=== PATIENT | male | born 1975 | race Caucasian/White ===

== ENCOUNTER 2023-04-13 08:30 | Outpatient (AMB) | payer BC, SELFPAY ==
[2023-04-13 08:35] VITALS: BP 130/86; PULSE 84; O2SAT 98; BMI 28.6
--- NOTE | 2023-04-13 08:35 | MHC.PC.OV ---
Vital Signs 04/13/23 08:35 Height 5 ft 7 in Weight 182 lb 8 oz BMI 28.6 BP 130/86 Blood Pressure Location Lt brachial Position Sitting Pulse 84 Pulse Source Pulse Oximeter Pulse Oximetry (%) 98 Oxygen Delivery Method Room Air Intake Visit Reasons: discuss medication Cigarette Maker Required: No Accompanied by: Self / Same As Patient Allergies varenicline [From Chantix] Allergy (Intermediate, Verified 04/13/23 08:36) Depression Medication List - Last Reconciled 04/13/23 by Kenji Sutton MD citalopram (Celexa) 20 mg PO BID dextroamphetamine-amphetamine 20 mg (Adderall) 20 mg PO BID melatonin 20 mg (2 x 10 mg) PO DAILY Tobacco use date assessed: 04/13/23 Dental Screening Dental Screen Date: 04/13/23 Did you have a dental visit in the last 12 months?: Yes Did you have a dental problem in the last 6 months where you did not have access to dental care?: No Was dental information given to patient?: Patient has dentist HPI discuss medication HPI Details would like to restart Adderal; off for 4 years [facility] Surgical History History of hand surgery Family History Mother No problems noted. Father No problems noted. Social History (Updated 12/23/20 @ 14:27 by APURVA Willis) Housing: House Alcohol intake: never Patient Tobacco Use Status: Former Tobacco user e-Cigarette/Vaping Use: Never Used service: No Current occupational status: employed Cognitive needs: No Hearing needs: No Vision needs: No Questionnaire PHQ-9 Over the last 2 weeks, how often have you been bothered by any of the following problems? 1. Little interest or pleasure in doing things: not at all 2. Feeling down, depressed, or hopeless: not at all 3. Trouble falling or staying asleep, or sleeping too much: not at all 4. Feeling tired or having little energy: not at all 5. Poor appetite or overeating: not at all 6. Feeling bad about yourself - or that you are a failure or have let yourself or your family down: not at all 7. Trouble concentrating on things, such as reading the newspaper or watching television: not at all 8. Moving or speaking so slowly that other people could have noticed. Or the opposite - being so fidgety or restless that you have been moving around a lot more than usual: not at all 9. Thoughts that you would be better off or of hurting yourself in some way: not at all Total score: 0 Source: Developed by Drs. Ash Ro, Diane Haley, Dar Montgomery and colleagues, with an educational marquise from [employer]. Thrive Questionnaire Date Thrive assessed: 04/13/23 I am a: Patient What is your living situation today?: I have a steady place to live Within the past 12 months, did the food you bought not last and you didn't have the money to get more?: Never true Within the past 12 months, did you worry whether your food would run out before you got money to buy more?: Never true Do you have trouble paying for medicines?: No Do you have trouble getting transportation to medical appointments?: No Do you have trouble paying your heating and electricity bill?: No Do you have trouble taking care of your child, family member or friend?: No Do you have trouble with day-to-day activities such as bathing, preparing meals, shopping, managing finances, etc.?: No Are you currently unemployed and looking for a job?: No Are you interested in more education?: No Please select the resources that you would like help with: None Currently or been in a relationship where the following occur: no concerns reported AUDIT C Alcohol Use Questionnaire (AUDIT-C) 1. How often do you have a drink containing alcohol?: Never 2. How many drinks containing alcohol do you have on a typical day when you are drinking?: 1 or 2 (none) 3. How often do you have six or more drinks on one occasion?: Never Total Score: 0 CALIN-7 AMB Questionnaire CALIN-7 Date CALIN - 7 assessed: 04/13/23 Feeling nervous, anxious, or on edge: 0 = Not at all Not being able to stop or control worryin = Not at all Worrying too much about different things: 0 = Not at all Trouble relaxin = Not at all Being so restless that it is hard to sit still: 0 = Not at all Becoming easily annoyed or irritable: 0 = Not at all Feeling afraid as if something awful might happen: 0 = Not at all Total CALIN-7 score (0-4 normal; 5-9 mild; 10-14 moderate; 15-21 severe): 0 Source: Developed by Drs. Ash Ro, Diane Haley, Dar Montgomery and colleagues, with an educational marquise from [employer]. Review of Systems Const Denies chills, Denies headache(s) and Denies weight loss ENT Denies headache(s) Card Denies chest pain, Denies syncope, Denies irregular heart rhythm and Denies dyspnea Resp Denies chest congestion, Denies cough and Denies dyspnea GI Denies abdominal pain, Denies change in stool character, Denies nausea and Denies vomiting Musc Denies deformity and Denies joint swelling Neuro Denies syncope and Denies headache(s) Physical exam (Primary Care) Vital Signs: Last Vital Signs Pulse 84 04/13/23 08:35 BP 130/86 04/13/23 08:35 Pulse Ox 98 04/13/23 08:35 Oxygen Delivery Method Room Air 04/13/23 08:35 BMI result Body Mass Index 28.6 Tobacco/Smoking Status: Tobacco use Status Tobacco use date assessed 04/13/23 04/13/23 08:44 Patient Tobacco Use Status Former Tobacco user 04/13/23 08:44 e-Cigarette/Vaping Use Never Used 04/13/23 08:44 PHQ-9: PHQ-9 Score PHQ-9: Total score 0 04/13/23 08:44 Thrive Assessment: Date of Thrive Assessment Date Thrive assessed 04/13/23 04/13/23 08:44 Currently or been in a relationship where the following occur: no concerns reported Const General: cooperative, healthy appearing and no acute distress HENMT Head: Yes normal to inspection Eyes General: appearance normal, both eyes and all related structures Neck Neck: Yes normal visual inspection Chest Chest palpation & inspection: normal inspection of the chest Assessment and Plan Assessment & Plan (1) ADHD: Code(s): F90.9 - Attention-deficit hyperactivity disorder, unspecified type Plan: labs and referral Orders: Orders Lipid Panel Today E78.5 - Hyperlipidemia, unspecified Thyroid Stimulating Hormone Today E03.9 - Hypothyroidism, unspecified Complete Blood Count Auto Diff Today D64.9 - Anemia, unspecified Comprehensive [place]. Panel Fast Today N28.9 - Disorder of kidney and ureter, unspecified Referrals Psychiatry Referral F90.9 - Attention-deficit hyperactivity disorder, unspecified type Medications: New melatonin 20 mg (2 x 10 mg) PO DAILY 60 caps 3RF Coding Level of Care Code New Pt Level 3 (57478) Diagnoses ADHD F90.9
== END 2023-04-13 09:11 | disposition home or self-care (01) ==
PROVIDERS: PCP Internal Medicine; Visit Provider Internal Medicine
DX: F90.9 Attention-deficit hyperactivity disorder, unspecified type (principal)
CPT/HCPCS: 99213

== ENCOUNTER 2023-05-02 06:32 | Outpatient (REF) | payer BC, SELFPAY ==
[2023-05-02 06:44] LABS: MANUAL DIFF FLAG NO
[2023-05-02 07:29] LABS: Basophils Absolute Auto 0.1 X10*3/uL (0.0-0.2); Basophils Percent Auto 0.5 % (0-2); Eosinophils Absolute Auto 0.1 X10*3/uL (0.0-0.4); Eosinophils Percent Auto 1.2 % (0-4); Hematocrit 46.3 % (42.0-52.0); Imm Gran Abs Auto 0.03 X10*3/uL (0.00-0.03); Imm Gran Pct Auto 0.3 % (0.0-0.4); Lymphocytes Absolute Auto 3.5 X10*3/uL (1.2-4.9); Lymphocytes Percent Auto 35.5 % (20-40); Mean Corpuscular HGB Conc 34.6 g/dl (31.0-36.0); Mean Corpuscular Hemoglobin 30.1 pg (27.0-33.0); Mean Corpuscular Volume 87.2 fL (80.0-98.0); Mean Platelet Volume 9.8 fL (9.4-12.4); Monocytes Absolute Auto 0.9 X10*3/uL (0.1-1.2); Monocytes Percent Auto 8.8 % (2-11); Neutrophils Absolute Auto 5.4 x10*3/uL (2.0-8.3); Neutrophils Percent Auto 53.7 % (45-73); Platelet Count 280 X10*3/uL (160-400); Red Blood Count 5.31 X10*6/uL (4.60-5.80); Red Cell Distribution Width 12.9 % (11.0-16.0)
[2023-05-02 08:02] LABS: Alanine Aminotransferase 38 U/L (0-40); Albumin Level 4.4 g/dL (3.5-5.0); Alkaline Phosphatase 77 U/L (39-117); Anion Gap 13 (12-20); Aspartate Amino Transferase 29 U/L (5-37); Bilirubin Total 0.4 mg/dL (0.0-1.0); Blood Urea Nitrogen 14 mg/dL (9-16); Calcium 9.6 mg/dL (8.4-10.2); Carbon Dioxide 23 mmol/L (22-29); Chloride 104 mmol/L (96-108); Cholesterol 203 mg/dL (<200); Estimated Glomerular Filt Rate > 60; Glucose Fasting 87 mg/dL (60-99); HDL Cholesterol 44 mg/dL (>40); LDL Cholesterol Calculated 134 mg/dL (<100); Sodium 136 mmol/L (135-145); Total Protein 7.6 g/dL (6.5-8.0); Triglycerides 128 mg/dL (<150)
[2023-05-02 08:20] LABS: Thyroid Stimulating Hormone 2.42 uIU/mL (0.32-4.0)
== END 2023-05-02 06:33 | disposition home or self-care (01) ==
LOC: HO.LAB 06:32
PROVIDERS: PCP Internal Medicine; Visit Provider Internal Medicine
DX: N28.9 Disorder of kidney and ureter, unspecified (principal); D64.9 Anemia, unspecified; E03.9 Hypothyroidism, unspecified; E78.5 Hyperlipidemia, unspecified
CPT/HCPCS: 36415; 80053; 80061; 84443; 85025

== ENCOUNTER 2023-07-03 09:38 | Outpatient (AMB) | payer BC, SELFPAY ==
[2023-07-03 09:47] VITALS: BP 150/100; PULSE 55; O2SAT 97; BMI 29.0
--- NOTE | 2023-07-03 09:47 | A.OFFPC_ITS ---
Vital Signs 07/03/23 09:47 Height 5 ft 7 in Weight 185 lb BMI 29.0 BP 150/100 H Blood Pressure Location Lt brachial Position Sitting Pulse 55 Pulse Source Pulse Oximeter Pulse Oximetry (%) 97 Oxygen Delivery Method Room Air Intake Visit Reasons: Discuss meds/ Req psych referral Trolley Wire Installer Required: No Steam Shovel Runner: Not Required per policy Accompanied by: Self / Same As Patient Allergies varenicline [From Chantix] Allergy (Intermediate, Verified 04/13/23 08:36) Depression Tobacco use date assessed: 04/13/23 Dental Screening Dental Screen Date: 07/03/23 Did you have a dental visit in the last 12 months?: Yes Did you have a dental problem in the last 6 months where you did not have access to dental care?: No Was dental information given to patient?: Patient has dentist HPI Discuss meds/ Req psych referral HPI Details has depression and will be seeing psych nexr month PFS Surgical History History of hand surgery Family History Mother No problems noted. Father No problems noted. Social History Housing: House Alcohol intake: never Patient Tobacco Use Status: Former Tobacco user e-Cigarette/Vaping Use: Never Used service: No Current occupational status: employed Cognitive needs: No Hearing needs: No Vision needs: No Questionnaire PHQ-9 Over the last 2 weeks, how often have you been bothered by any of the following problems? 1. Little interest or pleasure in doing things: not at all 2. Feeling down, depressed, or hopeless: not at all 3. Trouble falling or staying asleep, or sleeping too much: not at all 4. Feeling tired or having little energy: not at all 5. Poor appetite or overeating: not at all 6. Feeling bad about yourself - or that you are a failure or have let yourself or your family down: not at all 7. Trouble concentrating on things, such as reading the newspaper or watching television: not at all 8. Moving or speaking so slowly that other people could have noticed. Or the opposite - being so fidgety or restless that you have been moving around a lot more than usual: not at all 9. Thoughts that you would be better off or of hurting yourself in some way: not at all Total score: 0 Depression Screening Interpretation: Negative Depression Screening Done: Yes 53899 - PHQ-9 Billing: Yes Source: Developed by Drs. Ash Ro, Diane Haley, Dar Montgomery and colleagues, with an educational marquise from [employer]. Thrive Questionnaire Date Thrive assessed: 04/13/23 AUDIT C Alcohol Use Questionnaire (AUDIT-C) 1. How often do you have a drink containing alcohol?: Never 2. How many drinks containing alcohol do you have on a typical day when you are drinking?: 1 or 2 (none) 3. How often do you have six or more drinks on one occasion?: Never Total Score: 0 CALIN-7 AMB Questionnaire CALIN-7 Date CALIN - 7 assessed: 04/13/23 Source: Developed by Drs. Ash Ro, Diane Haley, Dar Montgomery and colleagues, with an educational marquise from [employer]. Review of Systems Const Denies chills, Denies headache(s) and Denies weight loss ENT Denies headache(s) Card Denies chest pain, Denies syncope, Denies irregular heart rhythm and Denies dyspnea Resp Denies chest congestion, Denies cough and Denies dyspnea GI Denies abdominal pain, Denies change in stool character, Denies nausea and Denies vomiting Musc Denies deformity and Denies joint swelling Neuro Denies syncope and Denies headache(s) Physical exam (Primary Care) Vital Signs: Last Vital Signs Pulse 55 07/03/23 09:47 BP 150/100 H 07/03/23 09:47 Pulse Ox 97 07/03/23 09:47 Oxygen Delivery Method Room Air 07/03/23 09:47 BMI result Body Mass Index 29.0 Tobacco/Smoking Status: Tobacco use Status Tobacco use date assessed 04/13/23 07/03/23 09:52 Patient Tobacco Use Status Former Tobacco user 07/03/23 09:52 e-Cigarette/Vaping Use Never Used 07/03/23 09:52 PHQ-9: PHQ-9 Score PHQ-9: Total score 0 07/03/23 09:55 Depression Screening Interpretation: Negative Thrive Assessment: Date of Thrive Assessment Date Thrive assessed 04/13/23 07/03/23 09:52 Const General: cooperative, comfortable, no acute distress and alert Neck Neck: Yes no lymphadenopathy Thyroid: Thyroid normal Resp Effort & Inspection: normal respiratory effort Auscultation: clear to auscultation bilaterally Percussion: percussion normal Cardio Jugular venous distension: no JVD Palpation: normal PMI Rate: regular rate Rhythm: regular rhythm Heart sounds: S1 normal heart sound present and S2 normal heart sound present GI Inspection: Yes normal to inspection Palpation (GI): No hepatosplenomegaly present Skin General skin exam: no rashes or lesions noted Extrem General: Yes no clubbing, cyanosis or edema Office Procedures Flu Questionnaire Does the patient have a severe egg allergy?: No Does the patient have severe life threatening allergies?: No Does the patient have a fever or illness today?: No Has the patient ever had Guillain-Hahira Syndrome?: No Has the patient ever had any past reaction to a flu shot?: No Immunizations flu vacc [id number] 6mos up(PF) 60 mcg(15 mcgx4)/0.5 mL IM syringe Performing Provider: Kenji Sutton MD Performing Location: [facility] Administered by: APURVA Otoole on 07/03/23 09:55 Dose Route Admin Location Dispensed Lot Number Expiration Date NDC Resp Therapist 0.5 mL IM Left Deltoid 0.5 mL [id number] 02/24/24 34167-272-90 [facility] Given Date VIS Provided VIS Publication Date 07/03/23 Single Vaccine 21 Eligibility Eligibility Date Funding Source Not [facility] Eligible 07/03/23 Private Assessment and Plan Assessment & Plan (1) Depression: Code(s): F32.A - Depression, unspecified Plan: as per psych Orders: Orders Influenza [id number] Immunization Today Z23 - Encounter for immunization Medications: New citalopram (Celexa) 20 mg PO BID 60 tabs 3RF Coding Level of Care Code Est Pt Level 3 (74581) Diagnoses Depression F32.A
== END 2023-07-03 11:32 | disposition home or self-care (01) ==
PROVIDERS: PCP Internal Medicine; Visit Provider Internal Medicine
DX: Z23 Encounter for immunization (principal); F32.A Depression, unspecified
CPT/HCPCS: 90471; 90686; 99213

== ENCOUNTER 2023-12-24 13:40 | Outpatient (AMB) | payer BC, SELFPAY ==
[2023-12-24 13:47] VITALS: BP 118/76; PULSE 80; O2SAT 98; BMI 28.5
--- NOTE | 2023-12-24 13:47 | A.OFFPC_ITS ---
Vital Signs 12/24/23 13:47 Height 5 ft 7 in Weight 182 lb BMI 28.5 BP 118/76 Blood Pressure Location Lt brachial Position Standing Pulse 80 Pulse Source Pulse Oximeter Pulse Oximetry (%) 98 Oxygen Delivery Method Room Air Intake Visit Reasons: Annual Exam Dimension Specification Inspector Required: No Accompanied by: Self / Same As Patient Allergies varenicline [From Chantix] Allergy (Intermediate, Verified 12/24/23 13:47) Depression Medication List - Last Reconciled 12/25/23 by Kenji Sutton MD citalopram (Celexa) 20 mg PO BID dextroamphetamine-amphetamine 20 mg (Adderall) 20 mg PO BID melatonin 20 mg (2 x 10 mg) PO DAILY Tobacco use date assessed: 12/24/23 Dental Screening Dental Screen Date: 12/24/23 Did you have a dental visit in the last 12 months?: Yes Did you have a dental problem in the last 6 months where you did not have access to dental care?: No Was dental information given to patient?: Patient has dentist HPI Annual Exam HPI Details adhd; sees psych PFSH Surgical History History of hand surgery Family History (Updated 12/24/23 @ 13:48 by Yaritza Ramirez CMA) Mother No problems noted. Father No problems noted. Social History Housing: House Alcohol intake: never Patient Tobacco Use Status: Former Tobacco user Tobacco use type: Cigarette e-Cigarette/Vaping Use: Never Used Second Hand Smoke Exposure: No service: No Current occupational status: employed Cognitive needs: No Hearing needs: No Vision needs: No Questionnaire PHQ-9 Over the last 2 weeks, how often have you been bothered by any of the following problems? 1. Little interest or pleasure in doing things: not at all 2. Feeling down, depressed, or hopeless: several days 3. Trouble falling or staying asleep, or sleeping too much: not at all 4. Feeling tired or having little energy: not at all 5. Poor appetite or overeating: not at all 6. Feeling bad about yourself - or that you are a failure or have let yourself or your family down: not at all 7. Trouble concentrating on things, such as reading the newspaper or watching television: not at all 8. Moving or speaking so slowly that other people could have noticed. Or the opposite - being so fidgety or restless that you have been moving around a lot more than usual: not at all 9. Thoughts that you would be better off or of hurting yourself in some way: not at all Total score: 1 Depression Screening Interpretation: Negative Depression Screening Done: Yes 23782 - PHQ-9 Billing: Yes Source: Developed by Drs. Ash Ro, Diane Haley, Dar Montgomery and colleagues, with an educational marquise from [employer]. Thrive Questionnaire Date Thrive assessed: 12/24/23 I am a: Patient What is your living situation today?: I have a steady place to live Within the past 12 months, did the food you bought not last and you didn't have the money to get more?: Never true Within the past 12 months, did you worry whether your food would run out before you got money to buy more?: Never true Do you have trouble paying for medicines?: No Do you have trouble getting transportation to medical appointments?: No Do you have trouble paying your heating and electricity bill?: No Do you have trouble taking care of your child, family member or friend?: No Do you have trouble with day-to-day activities such as bathing, preparing meals, shopping, managing finances, etc.?: No Are you currently unemployed and looking for a job?: No Are you interested in more education?: No Currently or been in a relationship where the following occur: no concerns reported THRIVE Score: 0 AUDIT C Alcohol Use Questionnaire (AUDIT-C) 1. How often do you have a drink containing alcohol?: Never 2. How many drinks containing alcohol do you have on a typical day when you are drinking?: 1 or 2 (none) 3. How often do you have six or more drinks on one occasion?: Never Total Score: 0 CALIN-7 AMB Questionnaire CALIN-7 Date CALIN - 7 assessed: 12/24/23 Feeling nervous, anxious, or on edge: 1 = Several days Not being able to stop or control worryin = Not at all Worrying too much about different things: 0 = Not at all Trouble relaxin = Not at all Being so restless that it is hard to sit still: 0 = Not at all Becoming easily annoyed or irritable: 0 = Not at all Feeling afraid as if something awful might happen: 0 = Not at all Total CALIN-7 score (0-4 normal; 5-9 mild; 10-14 moderate; 15-21 severe): 1 Source: Developed by Drs. Ash Ro, Diane Haley, Dar Montgomery and colleagues, with an educational marquise from [employer]. CALIN-7 Assessment Billing CALIN-7 Assessment Tool: CALIN-7 Assessment 53392 Review of Systems Const Denies chills, Denies fatigue, Denies headache(s) and Denies weight loss Eyes Denies change in vision, Denies diplopia and Denies eye pain ENT Denies vertigo, Denies dizziness, Denies headache(s) and Denies nasal discharge Card Denies chest pain, Denies rapid heart rate and Denies dyspnea on exertion Resp Denies chest congestion, Denies cough, Denies pain with cough and Denies dyspnea on exertion GI Denies abdominal pain, Denies hematochezia and Denies change in bowel habits Musc Denies myalgias, Denies arthralgias and Denies joint swelling Skin/Breast Denies lesions and Denies unusual bruising Neuro Denies vertigo, Denies dizziness, Denies headache(s) and Denies focal weakness Endo Denies fatigue Physical exam (Primary Care) Vital Signs: Last Vital Signs Pulse 80 12/24/23 13:47 BP 118/76 12/24/23 13:47 Pulse Ox 98 12/24/23 13:47 Oxygen Delivery Method Room Air 12/24/23 13:47 BMI result Body Mass Index 28.5 Tobacco/Smoking Status: Tobacco use Status Tobacco use date assessed 12/24/23 12/24/23 13:53 Patient Tobacco Use Status Former Tobacco user 12/24/23 13:53 Tobacco use type Cigarette 12/24/23 13:53 e-Cigarette/Vaping Use Never Used 12/24/23 13:53 PHQ-9: PHQ-9 Score PHQ-9: Total score 1 12/24/23 13:53 Depression Screening Interpretation: Negative Thrive Assessment: Date of Thrive Assessment Date Thrive assessed 12/24/23 12/24/23 13:53 Currently or been in a relationship where the following occur: no concerns reported Const General: cooperative, healthy appearing and no acute distress Orientation/consciousness: oriented to person, oriented to place and oriented to time HENMT Head: Yes normal to inspection, Yes normocephalic and Yes atraumatic Mouth: Normal oral and palatal mucosa present and tongue normal Throat: Yes posterior oropharynx normal and Yes uvula midline Eyes General: appearance normal, both eyes and all related structures Neck Neck: Yes normal visual inspection, Yes full ROM and Yes no lymphadenopathy Thyroid: Thyroid normal Carotids: normal carotid upstroke Chest Chest palpation & inspection: normal inspection of the chest Resp Effort & Inspection: normal respiratory effort and able to speak in complete sentences Auscultation: clear to auscultation bilaterally Cardio Jugular venous distension: no JVD Palpation: normal PMI Rate: regular rate Rhythm: regular rhythm Heart sounds: S1 normal heart sound present and S2 normal heart sound present GI Inspection: Yes normal to inspection Palpation (GI): Soft to palpation and No hepatosplenomegaly present Auscultation: normal bowel sounds General: Yes no CVA tenderness Back/Spine/Pelvis Back: no CVA tenderness Skin General skin exam: no rashes or lesions noted Neuro General: oriented to person, oriented to place and oriented to time Extrem General: Yes normal to inspection and Yes full ROM Assessment and Plan Assessment & Plan (1) Physical exam: Code(s): Z00.00 - Encounter for general adult medical examination without abnormal findings Plan: stable; do labs (2) ADHD: Code(s): F90.9 - Attention-deficit hyperactivity disorder, unspecified type Plan: per psych Orders: Orders Lipid Panel 12/24/23 Z13.220 - Encounter for screening for lipoid disorders Complete Blood Count Auto Diff 12/24/23 Z13.0 - Encounter for screening for diseases of the blood and blood-forming organs and certain disorders involving the immune mechanism Comprehensive [place]. Panel Fast 12/24/23 Z13.9 - Encounter for screening, unspecified Referrals Gastroenterology Referral Z12.11 - Encounter for screening for malignant neoplasm of colon Coding Level of Care Code Est Pt Prev Care 40-64y(00913) Diagnoses Physical exam Z00.00 ADHD F90.9 Additional Codes CALIN-7 Assessment Billing - CALIN-7 Assessment Tool: CALIN-7 Assessment 62076 ([id number])
== END 2023-12-24 15:02 | disposition home or self-care (01) ==
PROVIDERS: PCP Internal Medicine; Visit Provider Internal Medicine
DX: Z00.00 Encounter for general adult medical examination without abnormal findings (principal); F90.9 Attention-deficit hyperactivity disorder, unspecified type
CPT/HCPCS: 99396

== ENCOUNTER 2024-11-16 14:44 | Emergency (ER) | payer BC, SELFPAY ==
--- NOTE | ~2024-11-16 | XR_ITS ---
CLINICAL HISTORY: laceration L ring finger ?metal fb Radiographs of the left 4th digit, 3 views Comparison: None Findings: No fracture or dislocation. No degenerative change. Bone mineralization is normal. Soft tissue swelling laceration. No radiopaque foreign body. Impression: No fracture. No radiopaque foreign body. This document has been electronically signed by: Marleen Thompson MD on 11/16/2024 15:46:35
[2024-11-16 14:51] VITALS: BP 143/101; PULSE 105; RESP 18; TEMP 37; O2SAT 98; BMI 29.0
--- NOTE | 2024-11-16 14:54 | ED_ITS ---
HPI - Wound/Laceration General Chief Complaint: Wound/Laceration Stated Complaint: finger laceration Time Seen by Provider: 11/16/24 18:04 Source: patient Mode of arrival: ambulatory Limitations: no limitations History of Present Illness ED Provider: SIHLPA MORALES PA-C HPI narrative: 48-year-old male presents to the ED today for evaluation of laceration to left 4th digit sustained [employer] in ED today. He states that while sweeping up in his garage, his metal broom cracked causing him to cut his finger. The area immediately began to bleed. He presents with the area bandaged. He is not on anticoagulation. He is unsure of his last tetanus shot. Denies any difficulty moving the finger. Denies any other complaints. Related Data Home Medications ?Medication ?Instructions ?Recorded ?Confirmed dextroamphetamine-amphetamine 20 20 mg PO BID 12/23/20 12/25/23 mg tablet (Adderall) Previous Rx's ?Medication ?Instructions ?Recorded melatonin 10 mg capsule 20 mg (2 x 10 mg) PO DAILY #60 caps 04/13/23 citalopram 20 mg tablet (Celexa) 20 mg PO BID #60 tabs 07/03/23 Allergies Allergy/AdvReac Type Severity Reaction Status Date / Time varenicline [From Chantix] Allergy Intermediate Depression Verified 11/16/24 14:51 Review of Systems Review of Systems: Yes all other systems are reviewed and are negative PMFSH Past Medical History Attestation statement: The following information was validated with the patient. Source: old records reviewed and nursing notes reviewed Surgical History History of hand surgery Family History Family History Mother No problems noted. Father No problems noted. Social History Social History Housing: House Alcohol intake: never Patient Tobacco Use Status: Former Tobacco user Tobacco use type: Cigarette e-Cigarette/Vaping Use: Never Used Second Hand Smoke Exposure: No service: No Current occupational status: employed Cognitive needs: No Hearing needs: No Vision needs: No Physical Exam Vital Signs: Vital Signs: Last Vital Signs Temp 98.6 F 11/16/24 14:51 Pulse 105 H 11/16/24 14:51 Resp 18 11/16/24 14:51 BP 143/101 H 11/16/24 14:51 Pulse Ox 98 11/16/24 14:51 O2 Del Method Room Air 11/16/24 14:51 BMI result Body Mass Index 29.0 Hypertensive, tachycardic General: Well appearing, in no acute distress. Skin: +see below Head: Normocephalic, atraumatic. EENT: Hearing is intact b/l. Conjunctiva clear. PERRLA. EOM intact. Moist mucous membranes.? Cardiac: Chest wall symmetric. RRR. Lungs: Normal respiratory effort without accessory muscle use Ext: +2 superficial semi circular laceration to the palmar aspect of the left 4th digit. FROM intact to left 4th mcp, pip, dip. No noted FB. no visible bone. cap refill <2 seconds. 2+ radial/ ulnar pulse. Neuro: AOx3. Normal speech. Ambulating with steady gait. Course Course Course Narrative: This is a Rapid Medical Examination (RME) performed by Vicki Morales PA-C in triage. Full HPI, ROS, assessment and treatment plan per primary provider in the Main ED. Hx: 48 yo male here for eval of laceration to left ring finger sustained [employer] while sweeping in his garage. cut the finger on the metal broom. unsure of tetanus. no thinners. PE/vitals: semi cher-ae heights laceration noted to palmar aspect of L 4th digit. ac tively bleeding - wrapped in triage. Plan: xrs, tdap, lac repair Reevaluation(s) Reevaluation #1: 2 lacerations repaired with a total of 8 sutures after performing digital block. Patient tolerated well. Bleeding controlled. Wrapped in a nonstick dressing. X-rays do not demonstrate fracture or retained foreign body, specifically metal. His tetanus was updated today. Antibiotics not warranted at this time. He does have full range of motion to the digit however I will provide him with a referral to hand surgery if he desires. Patient has remained stable throughout ED visit today. Discussed worrisome signs and symptoms and when to return to the ED. All questions answered at this time. Patient is agreeable with disposition and stable for discharge. Medications Administered Discontinued Medications Generic Name Dose Route Start Last Admin Trade Name Freq PRN Reason Stop Dose Admin Diphtheria/Tetanus/Acell Pertussis 0.5 ml 11/16/24 14:54 11/16/24 18:09 Diphth,Pertus(Acell),Tet Adult 0.5 Ml Syringe IM 11/16/24 14:55 0.5 ml .ONCE ONE Administration Lidocaine HCl 10 ml 11/16/24 18:05 11/16/24 18:09 Lidocaine Hcl 1 % Mpf 5 Ml Vial INFILTRATI 11/16/24 18:06 10 ml ONCE ONE Administration Medical Decision Making Medical Decision Making MDM Narrative: 48-year-old male presents to the ED today for evaluation of laceration to left 4th digit sustained [employer] in ED today. he is nontoxic appearing and in NAD. On exam, there are 2 superficial semi circular laceration to the palmar aspect of the left 4th digit. FROM intact to left 4th mcp, pip, dip. No noted FB. no visible bone. cap refill <2 seconds. 2+ radial/ ulnar pulse. Differential diagnosis includes abrasion, laceration, retained FB, fracture Plan for xrays, tdap booster, laceration repair. Differential Diagnosis Differential Diagnoses: The differential diagnosis associated with the presentat ion includes as above. Admission/Observation Not indicated Independent Interpretation I performed an independent interpretation of an: Plain X-Ray Interpretation: XR left 4th digit without fracture or retained FB Radiology Impression Discussion of test interpretation with radiology: I have reviewed the radiologist's reading. Radiologist Impression: Procedure(s): XR finger LT min 2V Accession Number(s): [id number] cc: Kenji Sutton MD; Shilpa Morales~ CLINICAL HISTORY: laceration L ring finger ?metal fb Radiographs of the left 4th digit, 3 views Comparison: None Findings: No fracture or dislocation. No degenerative change. Bone mineralization is normal. Soft tissue swelling laceration. No radiopaque foreign body. Impression: No fracture. No radiopaque foreign body. This document has been electronically signed by: Marleen Thompson MD on 11/16/2024 15:46:35 External Record Review External record reviewed: Inpatient record Prescription Management I considered prescription management with: Pain Medication Social Determinants Patient?s care significantly limited by Social Determinants of Health including: Other Social Determinant of Health Procedures Laceration Laceration 1: Site: hand Side (If applicable): left Size (cm): 1 Description: other (semi cher-ae heights) Depth: simple, single layer Local Anesthetic: lidocaine 1% Amount of anesthesia used (mL): 5 Pre-repair: wound explored, irrigated extensively and deep structures intact Skin layer closed with: nylon Size (cm): 3-0 Number of sutures: 3 Technique: simple, interrupted Laceration 2: Site: hand Side (If applicable): left Size (cm): 1.5 Description: other (Semicircular) Depth: simple, single layer Local Anesthetic: lidocaine 1% Amount of anesthesia used (mL): 5 Pre-repair: wound explored, irrigated extensively and deep structures intact Skin layer closed with: nylon Size (cm): 3-0 Number of sutures: 5 Technique: simple, interrupted Nerve Block Nerve Block 1: Time out performed: Yes Local Anesthetic: lidocaine 1% Amount of anesthesia used (mL): 10 Side: left Nerve Blocks: digital Procedure Successful: Yes Patient Tolerated Procedure: well Complications: none Critical Care Time Critical Care Time Critical Care Time: No Discharge Plan Discharge Clinical Impression: Laceration of finger of left hand Patient Disposition: Home, Self-Care Instructions: Laceration (ED) Additional Instructions: You have been evaluated in the Emergency Department today for a laceration to your left 4th digit. Your xrays did not show fracture or retained foreign body. Your laceration was repaired in the ED with 8 sutures. Your tetanus vaccination was also updated and will be valid for 5-10 years. Please keep the area surrounding the laceration clean and dry. Do not get the area wet for 24 hours. After 24 hours, you may clean the area with a nonscented soap and pat to dry. Please keep the area out of the sunlight for the next 6 months to help prevent scarring.? If you develop redness or swelling at the site of your laceration or note any discharge/ fluid coming from the laceration, please come back to the ER for a wound check. I recommend you take 600mg ibuprofen every 6 hours or tylenol 650mg every 6 hours as needed for pain. If needed, you can alternate these medications so that you take one medication every 3 hours. For example, at noon take ibuprofen, then at 3pm take tylenol, then at 6pm take ibuprofen. Please follow up with your primary care physician in 7-10 days for suture removal. You may also return to the ER or another urgent care facility for this service. I have also provided you with a referral to a hand surgeon. You may call them for follow-up. They will not call you. Return to the Emergency Department if you experience discharge from your laceration, redness around your laceration, warmth around your laceration, fever, vomiting, numbness, tingling, or any other concerning symptoms. In the case of an emergency call 911. Prescriptions: No Action dextroamphetamine-amphetamine [Adderall] 20 mg tablet 20 mg PO BID Rx Instructions: administer doses at least 4-6 hours apart melatonin 10 mg capsule 20 mg PO DAILY Qty: 60 3RF citalopram [Celexa] 20 mg tablet 20 mg PO BID Qty: 60 3RF Referrals: Kenji Sutton MD [Primary Care Provider] - Stand Alone Forms: Work/School Release Discharge Date/Time: 11/16/24 18:58 Print Language: Latvian
[2024-11-16] MEDS: Lidocaine HCl 1 % MPF 5 ML VIAL 10 ML INFILTRATI (18:09)
[2024-11-16] MEDS: Diphth,Pertus(ACell),Tet Adult 0.5 ML SYRINGE IM (18:09)
--- NOTE | 2024-11-16 18:56 | PC.NURSE ---
pt discharged at change of shift by provider.
[2024-11-16 18:57] VITALS: BP 143/101; PULSE 105; RESP 18; TEMP 37; O2SAT 98
== END 2024-11-16 18:58 | disposition home or self-care (01) ==
PROVIDERS: Emergency Provider Emergency Medicine Emergency Medical Services; PCP Internal Medicine
DX: S61.215A Laceration without foreign body of left ring finger without damage to nail, initial encounter (principal); W26.8XXA Contact with other sharp object(s), not elsewhere classified, initial encounter; Y93.89 Activity, other specified; Y92.094 Garage of other non-institutional residence as the place of occurrence of the external cause; Y99.9 Unspecified external cause status; Z79.899 Other long term (current) drug therapy
CPT/HCPCS: 12001; 73140; 90471; 90715; 99282; 99284; J2003

== ENCOUNTER → 2024-11-16 14:53 | Outpatient (BNV) | payer BC, SELFPAY | PROVIDERS: PCP Internal Medicine; Visit Provider Radiology Diagnostic Radiology | DX: S61.215A Laceration without foreign body of left ring finger without damage to nail, initial encounter (principal) | CPT/HCPCS: 73140 ==

== ENCOUNTER 2025-01-21 17:39 | Emergency (ER) | payer BC, SELFPAY ==
[2025-01-21 17:57] VITALS: BP 138/101; PULSE 96; RESP 16; TEMP 36.2; O2SAT 96; BMI 28.1
--- NOTE | 2025-01-21 18:31 | ED_ITS ---
HPI - General Adult General Chief complaint: Animal Bite Stated complaint: tick bite Time Seen by Provider: 01/21/25 20:44 Source: patient Mode of arrival: ambulatory Limitations: no limitations History of Present Illness ED Provider: HPI narrative: Patient apparently had a tick bite 4 days ago on his left thigh which he removed less than 24 hours take was not engorged since then patient has been feeling weak tired no fever no chills no history of Lyme disease no upper respiratory symptoms Related Data Home Medications ?Medication ?Instructions ?Recorded ?Confirmed dextroamphetamine-amphetamine 20 20 mg PO BID 12/23/20 12/25/23 mg tablet (Adderall) Previous Rx's ?Medication ?Instructions ?Recorded melatonin 10 mg capsule 20 mg (2 x 10 mg) PO DAILY #60 caps 04/13/23 citalopram 20 mg tablet (Celexa) 20 mg PO BID #60 tabs 07/03/23 Allergies Allergy/AdvReac Type Severity Reaction Status Date / Time varenicline [From Chantix] Allergy Intermediate Depression Verified 01/21/25 17:59 Review of Systems 2 Review of Systems: Yes all other systems are reviewed and are negative [facility] Past Medical History Surgical History History of hand surgery Family History Family History Mother No problems noted. Father No problems noted. Social History Social History Housing: House Alcohol intake: never Patient Tobacco Use Status: Former Tobacco user Tobacco use type: Cigarette Smoked in Last 30 Days: No e-Cigarette/Vaping Use: Never Used Second Hand Smoke Exposure: No Use of substances other than those prescribed or required for medical reasons: No Advance Directives: No Advance Directives Information Provided: Yes Do you have a plan to hurt others: No Plan service: No Current occupational status: employed Cognitive needs: No Hearing needs: No Vision needs: No Physical Exam ED Vital Signs: Vital Signs - 24 hr 01/21/25 17:57 01/21/25 20:35 01/21/25 21:18 Temperature 97.1 F 97.6 F 97.6 F Pulse Rate 96 63 63 Respiratory Rate 16 16 16 Blood Pressure 138/101 H 142/85 H 142/85 H Pulse Oximetry 96 99 99 Oxygen Delivery Method Room Air Room Air BMI result Body Mass Index 28.1 Appearance: Alert. Oriented X3. No acute distress. Eyes: no pallor or icterus ENT: Pharynx normal Oral Mucosa moist tympanic membrane intact no erythema, Neck: Normal inspection. Neck supple. CVS: Normal heart rate and rhythm. Pulses normal. Respiratory: No respiratory distress. Equal air entry bilateral, no wheezing/rales/rhonchi Abd: soft, not tender Skin: Skin warm and dry. Normal skin color. Normal skin turgor. Extremities: No lower extremity edema, no calf tenderness bite jake on the left thigh no bull's eye sign Neuro: Oriented X 3. Course Course Course Narrative: This is a Rapid Medical Examination (RME) performed by Vicki Morales PA-C in triage. Full HPI, ROS, assessment and treatment plan per primary provider in the Main ED. Hx: 49 yo M here for eval of fatigue s/p removing tick from L thigh on Sunday morning. noticed redness around bite immediately after. no fevers. Plan: labs, tick/lyme testing - further eval in back Medications Administered Discontinued Medications Generic Name Dose Route Start Last Admin Trade Name Freq PRN Reason Stop Dose Admin Doxycycline Monohydrate 200 mg 01/21/25 20:49 01/21/25 21:16 Doxycycline Monohydrate 100 Mg Capsule PO 01/21/25 20:50 200 mg ONCE ONE Administration Medical Decision Making Medical Decision Making [facility] Narrative: Patient has AA take bite had subjective symptoms unlikely from Lyme disease will give prophylaxis doxycycline labs were drawn and sent for further testing Lab Data [facility] Lab Attestation statement: I reviewed the patient's lab results. 01/21/25 18:32 01/21/25 18:32 Labs: Lab Results 01/21/25 Range/Units 18:32 WBC 6.6 (4.8-10.8) X10*3/uL RBC 5.45 (4.60-5.80) X10*6/uL Hgb 16.7 (14.0-18.0) g/dl Hct 47.6 (42.0-52.0) % MCV 87.3 (80.0-98.0) fL MCH 30.6 (27.0-33.0) pg MCHC 35.1 (31.0-36.0) g/dl RDW 13.2 (11.0-16.0) % Plt Count 269 (160-400) X10*3/uL MPV 9.4 (9.4-12.4) fL Immature Gran % (Auto) 0.3 (0.0-0.4) % Neut % (Auto) 54.6 (45-73) % Lymph % (Auto) 30.9 (20-40) % Chaves % (Auto) 11.3 H (2-11) % Eos % (Auto) 1.8 (0-4) % Baso % (Auto) 1.1 (0-2) % Lymph # (Auto) 2.0 (1.2-4.9) X10*3/uL Chaves # (Auto) 0.7 (0.1-1.2) X10*3/uL Eos # (Auto) 0.1 (0.0-0.4) X10*3/uL Baso # (Auto) 0.1 (0.0-0.2) X10*3/uL Abs Immat Gran (auto) 0.02 (0.00-0.03) X10*3/uL Absolute Neuts (auto) 3.6 (2.0-8.3) x10*3/uL Absolute Nucleated RBC 0.000 (0.0-0.012) X10*3/uL Nucleated RBC % (auto) 0.0 (0.0-0.2) /100WBC Sodium 139 (135-145) mmol/L Potassium 3.8 (3.3-5.1) mmol/L Chloride 108 (96-108) mmol/L Carbon Dioxide 22 (22-29) mmol/L Anion Gap 13 (12-20) BUN 14 (9-16) mg/dL Creatinine 0.98 (0.5-1.4) mg/dL Estim Creat Clear Calc 94.1 Estimated GFR > 60 Random Glucose 121 H (60-115) mg/dL Calcium 9.0 D (8.4-10.2) mg/dL Total Bilirubin 0.3 (0.0-1.0) mg/dL AST 55 H (5-37) U/L ALT 71 H (0-40) U/L Alkaline Phosphatase 70 (39-117) U/L Total Protein 7.0 (6.5-8.0) g/dL Albumin 4.1 (3.5-5.0) g/dL Discharge Plan Discharge Clinical Impression: Tick bite Patient Disposition: Home, Self-Care Instructions: Tick Bite (ED) Additional Instructions: is unlikely that you have Lyme disease labs are pending you have been given prophylaxis treatment for Lyme disease follow up with your PCP Prescriptions: No Action dextroamphetamine-amphetamine [Adderall] 20 mg tablet 20 mg PO BID Rx Instructions: administer doses at least 4-6 hours apart melatonin 10 mg capsule 20 mg PO DAILY Qty: 60 3RF citalopram [Celexa] 20 mg tablet 20 mg PO BID Qty: 60 3RF Interventions: ED Discharge Assessment Last Done: 01/21/25 21:18 Discharge Date/Time: 01/21/25 21:18 Print Language: Maori
[2025-01-21 18:36] LABS: MANUAL DIFF FLAG NO
[2025-01-21 18:50] LABS: Alanine Aminotransferase 71 U/L (0-40); Albumin Level 4.1 g/dL (3.5-5.0); Alkaline Phosphatase 70 U/L (39-117); Anion Gap 13 (12-20); Aspartate Amino Transferase 55 U/L (5-37); Bilirubin Total 0.3 mg/dL (0.0-1.0); Blood Urea Nitrogen 14 mg/dL (9-16); Carbon Dioxide 22 mmol/L (22-29); Chloride 108 mmol/L (96-108); Creatinine Clr Calc Pharmacy 94.1; Estimated Glomerular Filt Rate > 60; Glucose Random 121 mg/dL (60-115); Potassium 3.8 mmol/L (3.3-5.1); Sodium 139 mmol/L (135-145)
[2025-01-21 18:55] LABS: Basophils Absolute Auto 0.1 X10*3/uL (0.0-0.2); Basophils Percent Auto 1.1 % (0-2); Eosinophils Absolute Auto 0.1 X10*3/uL (0.0-0.4); Eosinophils Percent Auto 1.8 % (0-4); Hematocrit 47.6 % (42.0-52.0); Hemoglobin 16.7 g/dl (14.0-18.0); Imm Gran Abs Auto 0.02 X10*3/uL (0.00-0.03); Imm Gran Pct Auto 0.3 % (0.0-0.4); Lymphocytes Percent Auto 30.9 % (20-40); Mean Corpuscular HGB Conc 35.1 g/dl (31.0-36.0); Mean Corpuscular Hemoglobin 30.6 pg (27.0-33.0); Mean Corpuscular Volume 87.3 fL (80.0-98.0); Mean Platelet Volume 9.4 fL (9.4-12.4); Monocytes Absolute Auto 0.7 X10*3/uL (0.1-1.2); Monocytes Percent Auto 11.3 % (2-11); Neutrophils Absolute Auto 3.6 x10*3/uL (2.0-8.3); Neutrophils Percent Auto 54.6 % (45-73); Platelet Count 269 X10*3/uL (160-400); Red Blood Count 5.45 X10*6/uL (4.60-5.80); Red Cell Distribution Width 13.2 % (11.0-16.0); White Blood Count 6.6 X10*3/uL (4.8-10.8)
--- OUTSIDE RECORDS SUMMARY | 2025-01-21 20:06 | XMS_ITS | Patient Health Record ---
Author Organization [facility] Address [address] [place] [id number] Care Team Providers Care Mail Processing Clerk Name Role Phone Herman ELDER, Kenji Primary Care Provider Ash Greene [phone] Reason For Referral No Information Encounters Encounter Location Date Provider Diagnosis [facility] [address] [place] [phone] 05/08/2024 Ash Galeana [facility] [address] [place] [phone] 09/16/2024 Ash Galeana Plan Of Treatment No Information Insurance Providers Payer Name Payer Address Payer Phone Subscriber Number Group Number Insured Name Patient Relationship to Insured Coverage Start Date Coverage End Date [facility] [address] [place] [address] [id number] DODIE GARCIA Self - patient is the insured
[2025-01-21 20:35] VITALS: BP 142/85; PULSE 63; RESP 16; TEMP 36.4; O2SAT 99
[2025-01-21] MEDS: Doxycycline Monohydrate 100 MG CAPSULE 200 MG PO (21:16)
[2025-01-21 21:18] VITALS: BP 142/85; PULSE 63; RESP 16; TEMP 36.4; O2SAT 99
[2025-01-22 17:49] LABS: Lyme Abs Screen <0.90 index
[2025-01-22 21:54] LABS: A. Phagocytphilium DNA,RT-PCR NOT DETECTED (NOT DETECTED); Babesia Microti DNA, RT-PCR NOT DETECTED (NOT DETECTED); Borrelia Miyamotoi,DNA RT-PCR NOT DETECTED (NOT DETECTED); E.Chaffeensis DNA RT-PCR NOT DETECTED (NOT DETECTED); Lyme(Borrelia ssp)DNA RT-PCR NOT DETECTED (NOT DETECTED)
== END 2025-01-21 21:18 | disposition home or self-care (01) ==
PROVIDERS: Physician Assistant Medical; Emergency Provider Internal Medicine
DX: S70.362A Insect bite (nonvenomous), left thigh, initial encounter (principal); W57.XXXA Bitten or stung by nonvenomous insect and other nonvenomous arthropods, initial encounter; R53.1 Weakness; Y93.9 Activity, unspecified; Y92.9 Unspecified place or not applicable; Y99.9 Unspecified external cause status; Z87.891 Personal history of nicotine dependence
CPT/HCPCS: 36415; 80053; 85025; 86617; 86618; 87468; 87469; 87478; 87484; 87798; 99283; 99284